=== PATIENT | male | born 1950 | race Caucasian/White ===

== ENCOUNTER 2017-02-03 19:16 | Emergency (ER) | payer BC, OTHER ==
[~2017-02-03] VITALS: Ht 182.9 cm; Wt 97.7 kg
[2017-02-03] MEDS ORDERED: NITROGLYCERIN 2% 1 GM OINT PKT TD STA (19:24)
[2017-02-03 19:25] VITALS: Ht 182.9 cm; Wt 97.7 kg
[2017-02-03] MEDS ORDERED: NITROGLYCERIN (SL) 0.4 MG TAB SL PRN (19:30)
--- NOTE | 2017-02-03 19:52 | RADRPT ---
PROCEDURE: XR Chest. CLINICAL INDICATION: Chest Pain. TECHNIQUE: Single frontal view of the chest. COMPARISON: None. FINDINGS: Cardiomegaly. Mild patchy lung base atelectasis versus airspace disease. Slight pulmonary vascular congestion. No signs of pleural fluid or pneumothorax are seen. The osseous structures and soft tis sues are unremarkable. IMPRESSION: Mild failure. RPTAT: [facility] Physician Trish Date Time Electronically viewed and signed by Physician Trish on 02/03/2017 19:52 RS/
[2017-02-03 19:53] LABS: ADD SCAN DIFF NO
[2017-02-03 19:55] LABS: BASOPHILS % 0.3 % (0.0-2.0); EOSINOPHILS # 0.4 10^3/ul (0.0-0.5); HEMATOCRIT 44.2 % (42.0-52.0); HEMOGLOBIN 14.9 g/dl (14.0-18.0); LYMPHOCYTES # 4.4 10^3/ul (0.8-2.9); LYMPHOCYTES % 49.4 % (15.0-51.0); MEAN CORPUSCULAR HEMOGLOBIN 31.8 pg (29.0-33.0); MEAN CORPUSCULAR HGB CONC 33.7 g/dl (32.0-37.0); MEAN CORPUSCULAR VOLUME 94.2 fl (82.0-101.0); MEAN PLATELET VOLUME 9.5 fl (7.4-10.4); MONOCYTE # 0.5 10^3/ul (0.3-0.9); MONOCYTES % 5.1 % (0.0-11.0); NEUTROPHIL # 3.6 10^3/ul (1.6-7.5); PLATELET COUNT 218 10^3/UL (140-415); RED BLOOD COUNT 4.69 10^6/ul (4.70-6.10); RED CELL DISTRIBUTION WIDTH 13.2 % (11.5-14.5); WHITE BLOOD COUNT 8.9 10^3/ul (4.8-10.8)
[2017-02-03 20:10] LABS: CHLORIDE 103 mmol/L (97-110); INR 0.91; POTASSIUM 4.2 mmol/L (3.5-5.1); PROTIME 12.3 Sec (12.2-14.2); SODIUM 140 mmol/L (135-144)
[2017-02-03 20:11] LABS: PARTIAL THROMBOPLASTIN TIME 29.2 Sec (25.0-35.0)
[2017-02-03 20:13] LABS: ANION GAP 15 (8-16); BLOOD UREA NITROGEN 12 mg/dl (7-20); CARBON DIOXIDE 26 mmol/L (21-31); CREATININE 0.67 mg/dl (0.61-1.24); GLUCOSE 257 mg/dl (70-220)
[2017-02-03 20:14] LABS: CALCIUM 9.3 mg/dl (8.4-10.2)
[2017-02-03 20:25] LABS: TROPONIN-I < 0.012 ng/ml (0.00-0.12)
--- NOTE | 2017-02-03 20:49 | ERA ---
ER Documentation Chief Complaint Date/Time DATE: 02/03/17 TIME: 20:46 Chief Complaint BIBA [id number], c/o intermittent chest pain started yesterday HPI Patient is a 66-year-old male with coronary disease, hypertension, and diabetes who presents with chest pain. Patient describes it as a pressure which radiates to his neck and jaw. It started at 3 PM and then went away and then started again at 6:30 PM. The patient was brought in by ambulance. He was given aspirin and nitroglycerin 3 by paramedics. Upon review of old medical records this is the patient's first visit to the emergency department. ROS All systems reviewed and are negative except as per history of present illness. Allergies Allergies: Coded Allergies: No Known Allergy (Unverified , 02/03/17) PMhx/Soc Hx Cardiac Disorders: Yes (HTN) Hx Miscellaneous Medical Probl: Yes (DM) Hx Alcohol Use: No Hx Substance Use: No Hx Tobacco Use: Yes (A pack a day) Smoking Status: Current every day smoker FmHx Family History: coronary disease Physical Exam Vitals Vital Signs Date Time Temp Pulse Resp B/P Pulse Ox O2 Delivery O2 Flow Rate FiO2 02/03/17 19:25 98.2 68 18 135/69 94 Physical Exam Const: No acute distress Head: Atraumatic Eyes: Normal Conjunctiva ENT: Normal External Ears, Nose and Mouth. Neck: Full range of motion..~ No meningismus. Resp: Clear to auscultation bilaterally Cardio: Regular rate and rhythm, no murmurs Abd: Soft, non tender, non distended. Normal bowel sounds Skin: No petechiae or rashes Back: No midline or flank tenderness Ext: No cyanosis, or edema Neur: Awake and alert Psych: Normal Mood and Affect Result Diagram: 02/03/17193702/03/171937 Results 24 hrs Laboratory Tests Test 02/03/17 19:38 White Blood Count 8.910^3/ul Red Blood Count 4.6910^6/ul Hemoglobin 14.9g/dl Hematocrit 44.2% Mean Corpuscular Volume 94.2fl Mean Corpuscular Hemoglobin 31.8pg Mean Corpuscular Hemoglobin Concent 33.7g/dl Red Cell Distribution Width 13.2% Platelet Count 63260^3/UL Mean Platelet Volume 9.5fl Neutrophils % 41.0% Lymphocytes % 49.4% Monocytes % 5.1% Eosinophils % 4.0% Basophils % 0.3% Nucleated Red Blood Cells % 0.0/100WBC Neutrophils # 3.610^3/ul Lymphocytes # 4.410^3/ul Monocytes # 0.510^3/ul Eosinophils # 0.410^3/ul Basophils # 0.010^3/ul Nucleated Red Blood Cells # 0.010^3/ul Prothrombin Time 12.3Sec Prothrombin Time Ratio 1.0 INR International Normalized Ratio 0.91 Activated Partial Thromboplast Time 29.2Sec Sodium Level 140mmol/L Potassium Level 4.2mmol/L Chloride Level 103mmol/L Carbon Dioxide Level 26mmol/L Anion Gap 15 Blood Urea Nitrogen 12mg/dl Creatinine 0.67mg/dl Glucose Level 257mg/dl Calcium Level 9.3mg/dl Troponin I < 0.012ng/ml Current Medications Medications (Trade) Dose Ordered Sig/Gretchen Route PRN Reason Start Time Stop Time Status Last Admin Dose Admin Nitroglycerin (Nitroglycerin 2% Oint) 1 inch ONCE STAT TD 02/03/17 19:24 02/03/17 19:26 DC 02/03/17 19:52 Nitroglycerin (Nitroglycerin (Sl Tab) 0.4 Mg) 1 tab Q5M UP TO 3 DOSES PRN SL CHEST PAIN 02/03/17 19:30 Ondansetron HCl (Zofran Inj) 4 mg ER BRIDGE PRN IV NAUSEA AND/OR VOMITING 02/03/17 21:00 02/04/17 20:59 Acetaminophen (Tylenol Tab) 650 mg ER BRIDGE PRN PO MILD PAIN/FEVER 02/03/17 21:00 02/04/17 20:59 Procedures/MDM EKG #1 read by me: Rate/Rhythm: First-degree AV block at a rate of 67 Intervals: Prolonged UT interval Impression: First-degree AV block without ischemia EKG #2 read by me: Rate/Rhythm: First-degree AV block at a rate of 74 Intervals: Prolonged UT interval Impression: First-degree AV block without ischemia Chest x-ray shows mild failure per radiology. Smoking Cessation Therapy: Pt. was lectured for greater than 3 minutes on the health risks of continued smoking and the benefits of cessation. Patient is a 66-year-old male with multiple cardiac risk factors who presents with chest pain. Given his age and comorbidities I am very concerned for acute coronary syndrome. I doubt pneumonia, pneumothorax, pulmonary embolism, or aortic dissection. The patient will be admitted to a telemetry bed under the care of Dr. Monsalve as the patient has [employer] insurance. The patient will be admitted to a telemetry bed. The patient was given aspirin nitroglycerin by paramedics. His initial EKG showed no obvious signs of ischemia. Initial troponin was negative. I have placed a call to Dr. Page from cardiology and I am awaiting a callback at this time. Departure Diagnosis: Primary Impression: Chest pain Qualified Code: R07.9 - Chest pain, unspecified type Condition: RAYMUNDO Ledesma MD February 03, 2017 20:49
[2017-02-03] MEDS ORDERED: ONDANSETRON 4 MG INJ IV PRN (21:00)
[2017-02-03] MEDS ORDERED: ACETAMINOPHEN 325 MG TAB PO PRN (21:00)
[2017-02-03] MEDS ORDERED: LISI2.5T59 PO (21:24)
[2017-02-03] MEDS ORDERED: GLYB1TAB3 PO (21:25)
[2017-02-03] MEDS ORDERED: ASPI81TA50 PO (21:26)
[2017-02-03] MEDS ORDERED: SIMV40TA2 PO (21:27)
[2017-02-03] MEDS ORDERED: CLOP75TA4 PO (21:28)
[2017-02-03] MEDS ORDERED: METO-429 PO (21:28)
[2017-02-03] MEDS ORDERED: ZOLP10TA5 PO (21:28)
[2017-02-03 22:18] VITALS: BP 102/88; PULSE 82; RESP 20; TEMP 97.3
[2017-02-03] MEDS ORDERED: ZOLPIDEM 5 MG TAB PO PRN (22:30)
[2017-02-03] MEDS ORDERED: morphine 2 MG INJ IV PRN (22:30)
[2017-02-03] MEDS ORDERED: morphine 4 MG/ML VIAL IV PRN (22:30)
[2017-02-04] MEDS ORDERED: LISINOPRIL 5 MG TAB PO SCH (09:00)
[2017-02-04] MEDS ORDERED: ASPIRIN 81 MG TAB PO SCH (09:00)
[2017-02-04] MEDS ORDERED: CLOPIDOGREL 75 MG TAB PO SCH ×2 (09:00)
[2017-02-04] MEDS ORDERED: ATORVASTATIN 40 MG TAB PO SCH (21:00)
== END 2017-02-03 22:16 | disposition left against medical advice (07) ==
LOC: E/R 19:16
DX: R07.89 Other chest pain (principal); I10 Essential (primary) hypertension; E11.9 Type 2 diabetes mellitus without complications; F17.210 Nicotine dependence, cigarettes, uncomplicated; I25.10 Atherosclerotic heart disease of native coronary artery without angina pectoris
CPT/HCPCS: 36415; 71010; 80048; 84484; 85025; 85610; 85730; 93005; 99285; Z7610